=== PATIENT | male | born 1990 | race Caucasian/White ===

== ENCOUNTER 2017-04-14 16:02 | Emergency (ER) | payer SELFPAY ==
[~2017-04-14 16:02] MED LIST: CEPHALEXIN500 M1 PO; CLINDAMYCIN HC300 MG PO; COUMADIN2.5 MG PO; IBU-8800 MG PO; LIDOCAINE VISC100 ML MM; Motrin,Rufen800 MG PO; PERCOCET 325 MG1 TA2 PO; PROTONIX20 MG PO; Peridex 473 ML473 ML PO; VISTARIL25 M2 PO; XANAX0.25 MG PO; XANAX0.5 MG PO; XARE20MG PO; XARELTO15 M1 PO; ZITHROMAX250 MG PO
[2017-04-14] MEDS ORDERED: NAPROSYN500 MG PO (17:23)
[2017-04-14] MEDS ORDERED: CYCLOBENZAPRINE10 MG PO (17:23)
== END 2017-04-14 17:29 | disposition home or self-care (01) ==
LOC: ED 16:02
DX: S70.01XA Contusion of right hip, initial encounter (principal); M25.561 Pain in right knee; F17.200 Nicotine dependence, unspecified, uncomplicated; Z88.8 Allergy status to other drugs, medicaments and biological substances; W18.30XA Fall on same level, unspecified, initial encounter; Y93.51 Activity, roller skating (inline) and skateboarding; Y92.9 Unspecified place or not applicable; Y99.9 Unspecified external cause status

== ENCOUNTER 2017-11-27 00:52 | Emergency (ER) | payer SELFPAY ==
[~2017-11-27] VITALS: Ht 175.2 cm; Wt 111.1 kg
[~2017-11-27 00:52] MED LIST changes: +CYCLOBENZAPRINE10 MG PO; +NAPROSYN500 MG PO
[2017-11-27] MEDS ORDERED: WARFARIN SODIUM10 MG PO (01:02)
[2017-11-27] MEDS ORDERED: MINIPRESS1 M1 PO (01:02)
== END 2017-11-27 02:02 | disposition home or self-care (01) ==
LOC: ED 00:52
DX: S01.81XA Laceration without foreign body of other part of head, initial encounter (principal); S09.90XA Unspecified injury of head, initial encounter; F17.200 Nicotine dependence, unspecified, uncomplicated; D68.2 Hereditary deficiency of other clotting factors; K21.9 Gastro-esophageal reflux disease without esophagitis; Z98.890 Other specified postprocedural states; Z79.899 Other long term (current) drug therapy; Z79.01 Long term (current) use of anticoagulants; Z86.718 Personal history of other venous thrombosis and embolism; Z88.8 Allergy status to other drugs, medicaments and biological substances; Z86.711 Personal history of pulmonary embolism; W22.8XXA Striking against or struck by other objects, initial encounter; Y93.89 Activity, other specified; Y92.69 Other specified industrial and construction area as the place of occurrence of the external cause; Y99.9 Unspecified external cause status

== ENCOUNTER 2018-02-06 23:04 | Emergency (ER) | payer SELFPAY ==
[~2018-02-06] VITALS: Ht 175.2 cm; Wt 108.9 kg
[~2018-02-06 23:04] MED LIST changes: +MINIPRESS1 M1 PO; +WARFARIN SODIUM10 MG PO
== END 2018-02-06 23:28 | disposition home or self-care (01) ==
LOC: ED 23:04
DX: R07.9 Chest pain, unspecified (principal); F17.200 Nicotine dependence, unspecified, uncomplicated; K21.9 Gastro-esophageal reflux disease without esophagitis; Z86.718 Personal history of other venous thrombosis and embolism; Z86.711 Personal history of pulmonary embolism; Z98.890 Other specified postprocedural states; Z88.8 Allergy status to other drugs, medicaments and biological substances; Z79.01 Long term (current) use of anticoagulants

== ENCOUNTER 2018-06-27 13:55 | Emergency (ER) | payer SELFPAY ==
[2018-06-27] MEDS ORDERED: CLINDAMYCIN HC300 MG PO (14:06)
[2018-06-27] MEDS ORDERED: NAPROSYN500 MG PO (15:48)
[2018-06-27] MEDS ORDERED: NORCO 5-325 TA1 EACH PO (16:07)
== END 2018-06-27 16:01 | disposition home or self-care (01) ==
LOC: ED 13:55
DX: K02.9 Dental caries, unspecified (principal); K21.9 Gastro-esophageal reflux disease without esophagitis; Z88.8 Allergy status to other drugs, medicaments and biological substances; Z79.01 Long term (current) use of anticoagulants; Z79.899 Other long term (current) drug therapy; Z86.73 Personal history of transient ischemic attack (TIA), and cerebral infarction without residual deficits

== ENCOUNTER 2018-09-20 19:34 | Emergency (ER) | payer SELFPAY ==
[~2018-09-20] VITALS: Ht 175.2 cm; Wt 113.4 kg
[~2018-09-20 19:34] MED LIST changes: +NORCO 5-325 TA1 EACH PO
[2018-09-20] MEDS ORDERED: CLINDAMYCIN150 MG PO (20:32)
[2018-09-20] MEDS ORDERED: Motrin,Rufen800 MG PO (20:34)
== END 2018-09-20 20:50 | disposition home or self-care (01) ==
LOC: ED 19:34
DX: K04.01 Reversible pulpitis (principal); K02.9 Dental caries, unspecified; G89.29 Other chronic pain; K21.9 Gastro-esophageal reflux disease without esophagitis; Z88.8 Allergy status to other drugs, medicaments and biological substances; Z79.2 Long term (current) use of antibiotics; Z79.1 Long term (current) use of non-steroidal anti-inflammatories (NSAID); Z79.899 Other long term (current) drug therapy; Z79.01 Long term (current) use of anticoagulants

== ENCOUNTER 2018-10-01 21:33 | Emergency (ER) | payer SELFPAY ==
[~2018-10-01] VITALS: Ht 175.2 cm; Wt 108.9 kg
--- NOTE | ~2018-10-01 | EKG ---
[place], [place] ELECTROCARDIOGRAM REPORT NAME: RENETTA TORRES UNIT #: [id number] ROOM: DOCTOR: EPIPHANY DRAFT REPORT BIRTHDATE: [birth year] [facility] Test Date: 2018-10-01 Test Time: 22:27:51 Pat Name: RENETTA TORRES Department: ED Room: 17 Gender: M [employer]: Jh Tenorio : 1990 Requested By: RODNEY OLSEN Order Number: [id number] Reading MD: Jean Jacinto MD Measurements Intervals [place] Rate: 68 P: -34 IA: 145 QRS: 68 QRSD: 89 T: 20 QT: 390 QTc: 415 Interpretive Statements Sinus rhythm Normal ECG Electronically Signed On 10-03-2018 14:33:33 PST by Jean Jacinto MD CM:EKGRPT:ELECTROCARDIOGRAM REPORT [id number] RODNEY OLSEN EPIPHANY DRAFT REPORT RODNEY OLSEN
[~2018-10-01 21:33] MED LIST changes: +CLINDAMYCIN150 MG PO
[2018-10-01 22:33] LABS: BASO # 0.1 10*3/uL (0.0-0.1); BASO % 1.2 % (0.0-1.0); EOS # 0.4 10*3/uL (0.0-0.4); HEMATOCRIT 42.4 % (42.0-52.0); HEMOGLOBIN 14.7 g/dl (14.0-18.0); LYMPH # 3.5 10*3/uL (1.3-4.4); LYMPH % 42.9 % (27.0-41.0); MEAN CELL VOLUME 91.4 fl (80.0-94.0); MEAN CORPUSCULAR HGB 31.7 pg (27.0-31.0); MEAN CORPUSCULAR HGB CONC 34.7 g/dl (33.0-37.0); MEAN PLATELET VOLUME 9.6 fl (9.6-12.3); MONO # 0.8 10*3/uL (0.1-1.0); MONO % 9.7 % (3.0-9.0); NEUT # 3.3 10*3/uL (2.3-7.9); PLATELET COUNT AUTOMATED 204 10*3/uL (130-400); RED BLOOD COUNT 4.64 10*6/uL (4.50-5.90); RED CELL DISTRI WIDTH 13.2 % (0-14.5); WHITE BLOOD COUNT 8.1 10*3/uL (4.8-10.8)
[2018-10-01 22:45] LABS: ACT PARTIAL THROMBO TIME 23.5 SECONDS (20.8-31.5)
[2018-10-01 22:48] LABS: ALBUMIN 3.7 gm/dl (3.1-4.5); ALKALINE PHOSPHATASE 56 U/L (45-117); BUN 15 mg/dl (7-24); CHLORIDE 108 mmol/L (98-107); CREATININE 0.98 mg/dL (0.70-1.30); POTASSIUM 4.3 mmol/L (3.5-5.1); SGOT/AST 24 IU/L (3-35); SGPT/ALT 29 U/L (12-78); SODIUM 141 mmol/L (136-145); TOTAL PROTEIN 7.2 gm/dL (6.4-8.2)
[2018-10-01] MEDS ORDERED: DOXYCYCLINE100 M3 PO (22:55)
[2018-10-01] MEDS ORDERED: CHERATUSSIN AC118 M1 PO (22:55)
[2018-10-01 23:25] LABS: TROPONIN I < 0.015 ng/ml (<0.045)
== END 2018-10-01 23:52 | disposition home or self-care (01) ==
LOC: ED 21:33
PROVIDERS: Nurse Practitioner
DX: J01.90 Acute sinusitis, unspecified (principal); J98.11 Atelectasis; Z88.8 Allergy status to other drugs, medicaments and biological substances; Z79.899 Other long term (current) drug therapy; Z79.02 Long term (current) use of antithrombotics/antiplatelets

== ENCOUNTER 2021-09-23 12:48 | Inpatient (IN) | payer SELFPAY ==
[~2021-09-23] VITALS: Ht 175.2 cm; Wt 113.4 kg
[~2021-09-23 12:48] MED LIST changes: +CHERATUSSIN AC118 M1 PO; +DOXYCYCLINE100 M3 PO
[2021-09-23 13:01] VITALS: BP 131/87
[2021-09-23 14:11] LABS: BASO # 0.1 10*3/uL (0.0-0.1); BASO % 0.4 % (0.0-1.0); EOS % 0.2 % (1.0-4.0); HEMATOCRIT 46.3 % (42.0-52.0); LYMPH # 0.9 10*3/uL (1.3-4.4); LYMPH % 4.7 % (27.0-41.0); MEAN CORPUSCULAR HGB 32.1 pg (27.0-31.0); MEAN CORPUSCULAR HGB CONC 34.6 g/dl (33.0-37.0); MEAN PLATELET VOLUME 9.4 fl (9.6-12.3); MONO # 1.1 10*3/uL (0.1-1.0); MONO % 5.4 % (3.0-9.0); NEUT # 17.6 10*3/uL (2.3-7.9); NEUT % 88.3 % (47.0-73.0); PLATELET COUNT AUTOMATED 239 10*3/uL (130-400); RED BLOOD COUNT 4.98 10*6/uL (4.50-5.90)
[2021-09-23 14:28] LABS: ALBUMIN 3.7 gm/dl (3.1-4.5); ALKALINE PHOSPHATASE 64 U/L (45-117); BUN 16 mg/dl (7-24); CHLORIDE 108 mmol/L (98-107); CREATININE 0.85 mg/dL (0.70-1.30); POTASSIUM 4.1 mmol/L (3.5-5.1); SGOT/AST 18 IU/L (3-35); SGPT/ALT 23 U/L (12-78); SODIUM 139 mmol/L (136-145); TOTAL PROTEIN 7.7 gm/dL (6.4-8.2)
[2021-09-23 14:31] LABS: TROPONIN I < 0.015 ng/ml (<0.045)
[2021-09-23 15:05] VITALS: BP 130/78
[2021-09-23 16:46] LABS: BILIRUBIN Negative (Negative); BLOOD Negative (Negative); CLARITY Clear (Clear); COLOR Yellow (Yellow); GLUCOSE Negative (Negative); KETONE Negative (Negative); LEUKO ESTERASE Negative (Negative); NITRITE Negative (Negative); PH 5.5 (4.5-8.0); SPECIFIC GRAVITY >= 1.030 (1.001-1.030); UROBILINOGEN 0.2 E.U./dl (0.0-1.0)
[2021-09-23 16:57] LABS: RBC 0-2 rbc/hpf (0-2)
[2021-09-23 16:58] LABS: WBC 0-2 wbc/hpf (0-5)
[2021-09-23 17:00] VITALS: BP 128/74
[2021-09-23 19:38] VITALS: BP 121/69
== END 2021-09-23 21:52 | disposition left against medical advice (07) | DRG 872 ==
LOC: ED 12:48 → EDHOLD 17:57
PROVIDERS: Physician Assistant; ADMIT Student in an Organized Health Care Education/Training Program; ATTEND Student in an Organized Health Care Education/Training Program
DX: A41.9 Sepsis, unspecified organism (principal); L03.116 Cellulitis of left lower limb; I15.8 Other secondary hypertension; E87.8 Other disorders of electrolyte and fluid balance, not elsewhere classified; F41.9 Anxiety disorder, unspecified; F17.210 Nicotine dependence, cigarettes, uncomplicated; K21.9 Gastro-esophageal reflux disease without esophagitis; Z82.5 Family history of asthma and other chronic lower respiratory diseases; Z86.718 Personal history of other venous thrombosis and embolism; Z86.711 Personal history of pulmonary embolism; Z79.899 Other long term (current) drug therapy

== ENCOUNTER 2023-01-03 16:25 | Emergency (ER) | payer SELFPAY | END 2023-01-03 17:43 | disposition left against medical advice (07) | LOC: ED 16:25 | DX: R06.02 Shortness of breath (principal); R51.9 Headache, unspecified; Z53.21 Procedure and treatment not carried out due to patient leaving prior to being seen by health care provider ==

== ENCOUNTER 2023-02-01 09:28 | Emergency (ER) | payer SELFPAY ==
[~2023-02-01] VITALS: Ht 175.2 cm; Wt 113.4 kg
[2023-02-01 10:13] LABS: BASO # 0.1 10*3/uL (0.0-0.1); BASO % 0.9 % (0.0-1.0); EOS # 0.1 10*3/uL (0.0-0.4); EOS % 1.9 % (1.0-4.0); HEMATOCRIT 43.5 % (42.0-52.0); LYMPH # 2.2 10*3/uL (1.3-4.4); LYMPH % 31.2 % (27.0-41.0); MEAN CELL VOLUME 93.3 fl (80.0-94.0); MEAN CORPUSCULAR HGB 31.1 pg (27.0-31.0); MEAN CORPUSCULAR HGB CONC 33.3 g/dl (33.0-37.0); MEAN PLATELET VOLUME 9.1 fl (9.6-12.3); MONO # 0.6 10*3/uL (0.1-1.0); MONO % 7.9 % (3.0-9.0); NEUT % 57.8 % (47.0-73.0); PLATELET COUNT AUTOMATED 241 10*3/uL (130-400); RED BLOOD COUNT 4.66 10*6/uL (4.50-5.90); RED CELL DISTRI WIDTH 13.4 % (0-14.5)
[2023-02-01 10:28] LABS: ALKALINE PHOSPHATASE 54 U/L (46-116); BUN 12 mg/dl (9-23); CHLORIDE 105 mmol/L (98-107); POTASSIUM 4.5 mmol/L (3.4-5.1); SGPT/ALT 17 U/L (10-49)
[2023-02-01] MEDS ORDERED: PREDNISONE50 MG PO (12:36)
== END 2023-02-01 12:41 | disposition home or self-care (01) ==
LOC: ED 09:28
PROVIDERS: Internal Medicine
DX: J18.9 Pneumonia, unspecified organism (principal); F32.A Depression, unspecified; F41.9 Anxiety disorder, unspecified